=== PATIENT | female | born 1990 | race Caucasian/White ===

== ENCOUNTER 2020-04-28 21:37 | Emergency (ER) | payer MEDICAID, OTHER ==
[~2020-04-28] VITALS: Ht 160 cm; Wt 65.2 kg
[~2020-04-28 21:37] MED LIST: IBUP-1222 PO; OXYC-302 PO; PREN1TAB56 PO
[2020-04-28 21:43] VITALS: BP 113/74
[2020-04-28] MEDS ORDERED: LIDOCAINE-MPF 2% ,5ML ONE (22:28)
[2020-04-28] MEDS ORDERED: LIDOCAINE-MPF 1%, 5ML INFIL ONE (22:30)
--- NOTE | 2020-04-28 23:03 | NUR ---
pt ring cut off by emt and grazyna ro numbed left finger. pt currently no needs.
--- NOTE | 2020-04-28 23:15 | NUR ---
emt to bs to irrigate
[2020-04-28] MEDS ORDERED: LIDOCAINE-MPF 1%, 5ML ONE (23:29)
--- NOTE | 2020-04-28 23:35 | NUR ---
grazyna ro at bs to suture.
[2020-04-28] MEDS ORDERED: NEOSPORIN OINT. PKT 1 PACKET ONE (23:41)
--- NOTE | 2020-04-28 23:55 | NUR ---
dressed finger lac with daly/bandaid. work note given with dc paper work. pt verablized understanding.
== END 2020-04-28 23:56 | disposition home or self-care (01) ==
LOC: ED 22:22
DX: S61.213A Laceration without foreign body of left middle finger without damage to nail, initial encounter (principal); W26.9XXA Contact with unspecified sharp object(s), initial encounter; Y93.89 Activity, other specified; Y92.009 Unspecified place in unspecified non-institutional (private) residence as the place of occurrence of the external cause; Y99.8 Other external cause status
CPT/HCPCS: 12041; 99284